=== PATIENT | female | born 1965 | race Caucasian/White ===

== ENCOUNTER → 2016-08-21 | Outpatient (CLI) | payer BC | END | disposition home or self-care (01) | LOC: RAD.S 08-18 17:04 | DX: R92.1 Mammographic calcification found on diagnostic imaging of breast (principal); R92.0 Mammographic microcalcification found on diagnostic imaging of breast ==

== ENCOUNTER → 2016-08-28 | Outpatient (CLI) | payer BC | END | disposition home or self-care (01) | LOC: RAD.S 10:11 | DX: R92.0 Mammographic microcalcification found on diagnostic imaging of breast (principal) ==